=== PATIENT | female | born 1990 | race African-American/Black ===

== ENCOUNTER 2019-04-23 00:56 | Emergency (ER) | payer MEDICAID ==
[~2019-04-23] VITALS: Ht 165.1 cm; Wt 66.0 kg
[2019-04-23] MEDS ORDERED: PIPERACILLIN/TAZ 3.375G PREMIX 50 ML IV ONE (02:15)
[2019-04-23] MEDS ORDERED: VANCOMYCIN 1 G PREMIX 200 ML IV ONE (02:15)
[2019-04-23 02:35] LABS: BASOPHILS % 0.2 % (0.0-2.0); EOSINOPHILS % 6.9 % (0.0-5.0); HEMATOCRIT. 32.1 % (36.0-48.0); HEMOGLOBIN. 10.6 g/dL (12.0-16.0); LYMPHOCYTES % 8.2 % (20.0-50.0); MEAN CORPUSCULAR HEMOGLOBIN 30.6 pg (28.0-32.0); MEAN CORPUSCULAR VOLUME 92.6 fL (81.0-99.0); MEAN PLATELET VOLUME 8.4 fl (7.4-10.4); NEUTROPHILS % 81.7 % (40.0-76.0); PLATELET 188 x1000/uL (130-400); RED BLOOD CELL COUNT 3.46 mill/uL (4.2-5.4); RED CELL DISTRIBUTION WIDTH 14.3 % (11.6-14.6)
[2019-04-23 02:40] LABS: CHLORIDE 104 mEq/L (98-107)
[2019-04-23 02:59] LABS: HCG SCREEN NEGATIVE
[2019-04-23 03:30] VITALS: BP 201/133
[2019-04-23] MEDS ORDERED: DEXTROSE 50% WATER 50ML SYRINGE IV ONE (03:30)
[2019-04-23] MEDS ORDERED: ALBUTEROL (0.083%) 2.5MG/3ML NEB HHN ONE (03:30)
[2019-04-23] MEDS ORDERED: SODIUM BICARBONATE 8.4% 1 MEQ/ML 50ML SYR IV ONE (03:30)
[2019-04-23] MEDS ORDERED: CALCIUM CHLORIDE 1GM/10ML SYR IV ONE (03:30)
[2019-04-23] MEDS ORDERED: INSULIN REGULAR (HUMULIN R) 300UNITS/3ML IV ONE (03:30)
== END 2019-04-23 03:45 | disposition left against medical advice (07) ==
LOC: ER 00:56
DX: E87.5 Hyperkalemia (principal); E87.70 Fluid overload, unspecified; R00.0 Tachycardia, unspecified; I12.0 Hypertensive chronic kidney disease with stage 5 chronic kidney disease or end stage renal disease; N18.6 End stage renal disease; Z99.2 Dependence on renal dialysis; F12.90 Cannabis use, unspecified, uncomplicated
CPT/HCPCS: 36415; 71045; 80053; 83605; 84703; 85025; 87040; 87804; 93005; 96365; 99284; J2543; Z7610